=== PATIENT | female | born 1955 | race Caucasian/White ===

== ENCOUNTER 2017-08-30 12:07 | Observation (INO) | payer BC ==
--- NOTE | 2017-08-30 12:34 | ED ---
Chest Pain HPI - General Chief Complaint: Chest Pain Stated Complaint: Chest Pain Time Seen by Provider: 08/30/17 12:26 Source: patient, RN notes reviewed Mode of arrival: wheelchair - History of Present Illness Initial Comments: This is a 7-year-old female history of heart disease with 2 bypasses and a stent about 10 years ago states she was visiting a local assisted she started developing retrosternal nonradiating chest pain. She states it did not radiate to her jaw or to her arm was midsternal fairly severe about 8/10 lasting about 30 minutes. She is pain-free right now she had no nausea vomiting sweats or other symptoms at the time. She is on normally get chest pain. No recent cough phlegm production no trauma. MD Complaint: chest pain - Related Data Home Medications Medication Instructions Recorded Confirmed No Known Home Medications [No 08/30/17 08/30/17 Known Home Medications] Allergies Allergy/AdvReac Type Severity Reaction Status Date / Time No Known Allergies Allergy Verified 08/30/17 12:27 Review of Systems ROS Statement: Those systems with pertinent positive or pertinent negative responses have been documented in the HPI. ROS Other: All systems not noted in ROS Statement are negative. EKG Findings - EKG Results: EKG: interpreted by ERMD, sinus rhythm (Sinus rhythm rate is 60. Interval 156 QRS duration 76 QT since QTC of 454/454 right word axis nonspecific ST configuration) Past Medical History Past Medical History: Coronary Artery Disease (CAD), CVA/TIA, Hyperlipidemia, Myocardial Infarction ([place]) Additional Past Medical History / Comment(s): 10-7-15 c/o neuro symptoms. History of Any Multi-Drug Resistant Organisms: None Reported Past Surgical History: Adenoidectomy, Coronary Bypass/CABG, Heart Catheterization With Stent, Tonsillectomy Additional Past Surgical History / Comment(s): had 2 cabg- first one pt stated had triple done and 2nd one also triple but they had to repair one previous vessel, cyst removed from rt breast Past Anesthesia/Blood Transfusion Reactions: No Reported Reaction Date of Last Stent Placement:: unk Past Psychological History: No Psychological Hx Reported Smoking Status: Current every day smoker - Past Family History Mother Family Medical History: Cancer, Coronary Artery Disease (CAD), Renal Disease Additional Family Medical History / Comment(s): uterine ca and cabg Father Family Medical History: Cancer, Congestive Heart Failure (CHF), Prostate Disorder Additional Family Medical History / Comment(s): prostate cancer General Exam - General Exam Comments Initial Comments: This is a well-developed well-nourished awake alert oriented 3 female General appearance: alert, in no apparent distress Head exam: Present: atraumatic, normocephalic, normal inspection Eye exam: Present: normal appearance, PERRL, EOMI. Absent: scleral icterus, conjunctival injection, periorbital swelling ENT exam: Present: normal exam, mucous membranes moist Neck exam: Present: normal inspection. Absent: tenderness, meningismus, lymphadenopathy Respiratory exam: Present: normal lung sounds bilaterally. Absent: respiratory distress, wheezes, rales, rhonchi, stridor Cardiovascular Exam: Present: regular rate, normal rhythm, normal heart sounds. Absent: systolic murmur, diastolic murmur, rubs, gallop, clicks GI/Abdominal exam: Present: soft, normal bowel sounds. Absent: distended, tenderness, guarding, rebound, rigid Extremities exam: Present: normal inspection, full ROM, normal capillary refill. Absent: tenderness, pedal edema, joint swelling, calf tenderness Back exam: Present: normal inspection Neurological exam: Present: alert, oriented X3, CN II-XII intact Psychiatric exam: Present: normal affect, normal mood Skin exam: Present: warm, dry, intact, normal color. Absent: rash Course Vital Signs 08/30/17 08/30/17 08/30/17 12:11 12:36 14:00 Temperature 98.2 F Pulse Rate 69 64 62 Respiratory 18 18 18 Rate Blood Pressure 200/91 175/80 158/76 O2 Sat by Pulse 99 99 99 Oximetry 08/30/17 14:51 Temperature 97.9 F Pulse Rate 60 Respiratory 18 Rate Blood Pressure 151/80 O2 Sat by Pulse 100 Oximetry Chest Pain MDM - MDM Imaging shows no acute findings. Discussion with patient and reveals no further chest pain at this time the concern is the patient's had no chest pain for quite a while recurrence today is suspicious for recurrent angina patient will be admitted did discuss case with Dr. De La Garza. Critical Care Time Critical Care Time: Yes Critical Care Time: 31 minutes of critical care time which includes initial presentation with history physical labs x-rays reevaluation of the patient and discussed with patient family member regarding the findings. Discussed with the admitting physician admission orders and documentation of the above. Disposition Clinical Impression: Unstable angina pectoris, Chest pain Disposition: ADMITTED IP TO THIS HOSP Condition: Stable Referrals: None,Stated [Primary Care Provider] - 1-2 days
[2017-08-30 12:51] LABS: Basophils % (A) 0 %; Eosinophils # (A) 0.1 k/uL (0-0.7); Eosinophils % (A) 1 %; HCT 42.4 % (34.0-46.0); HGB 14.5 gm/dL (11.4-16.0); Lymphocytes # (A) 1.8 k/uL (1.0-4.8); Lymphocytes % (A) 24 %; MCH 32.2 pg (25.0-35.0); MCHC 34.2 g/dL (31.0-37.0); MCV 93.9 fL (80.0-100.0); Mean Platelet Volume 7.1; Monocytes # (A) 0.3 k/uL (0-1.0); Monocytes % (A) 4 %; Neutrophils # (A) 5.3 k/uL (1.3-7.7); Neutrophils % (A) 69 %; Platelet Count 323 k/uL (150-450); RBC 4.51 m/uL (3.80-5.40); RDW 12.9 % (11.5-15.5); WBC 7.7 k/uL (3.8-10.6)
[2017-08-30 12:56] LABS: ALT 30 U/L (9-52); AST 21 U/L (14-36); Albumin 4.3 g/dL (3.5-5.0); Alkaline Phosphatase 50 U/L (38-126); Amylase 55 U/L (30-110); Anion Gap 9 mmol/L; Blood Urea Nitrogen 14 mg/dL (7-17); Calcium 9.8 mg/dL (8.4-10.2); Carbon Dioxide 27 mmol/L (22-30); Chloride 106 mmol/L (98-107); Glucose 99 mg/dL (74-99); Lipase 93 U/L (23-300); Magnesium 1.8 mg/dL (1.6-2.3); Sodium 142 mmol/L (137-145); Total Bilirubin 0.4 mg/dL (0.2-1.3); Total Protein 7.1 g/dL (6.3-8.2)
--- NOTE | 2017-08-30 12:56 | XR ---
EXAMINATION TYPE: XR chest 2V DATE OF EXAM: 08/30/2017 COMPARISON: Prior chest x-ray April 04, 2015. HISTORY: Chest pain today. TECHNIQUE: Frontal and lateral views of the chest are obtained. FINDINGS: Sternal wires and mediastinal clips are redemonstrated. There is chronic parenchymal change without suspicious focal air space opacity, pleural effusion, or pneumothorax seen. The cardiac carole houette size is within normal limits. The osseous structures are intact. IMPRESSION: Chronic changes without acute pulmonary process.
[2017-08-30 12:59] LABS: Prothrombin Time 10.1 sec (9.0-12.0)
[2017-08-30 13:07] LABS: Creatine Kinase 35 U/L (30-135)
[2017-08-30 13:19] LABS: Creatine Kinase MB 0.5 ng/mL (0.0-2.4); Troponin I <0.012 ng/mL (0.000-0.034)
[2017-08-30] MEDS ORDERED: NITROGLYCERIN SL TABS 0.4 MG TAB SUBLINGUAL PRN (15:57)
[2017-08-30] MEDS ORDERED: HEPARIN SODIUM,PORCINE 5,000 UNIT/ML 1 ML VIAL IV ONE (15:57)
[2017-08-30] MEDS ORDERED: SODIUM CHLORIDE 0.9% 1,000 ML IV SCH (16:00)
[2017-08-30] MEDS ORDERED: HEPARIN SOD,PORK IN 0.45% NACL 25,000 UNIT in 0.45% NACL 1 500ML.BAG IV SCH (16:00)
[2017-08-30 19:43] LABS: Creatine Kinase 30 U/L (30-135)
[2017-08-30 19:56] LABS: Creatine Kinase MB 0.4 ng/mL (0.0-2.4); Troponin I <0.012 ng/mL (0.000-0.034)
[2017-08-30] MEDS: NICOTINE 14MG/24HR PATCH TRANSDERM SCH (20:21)
[2017-08-31 00:42] LABS: Creatine Kinase 30 U/L (30-135)
[2017-08-31 00:56] LABS: Creatine Kinase MB 0.5 ng/mL (0.0-2.4); Troponin I <0.012 ng/mL (0.000-0.034)
[2017-08-31] MEDS ORDERED: ALPRAZolam 0.25 MG TAB PO PRN (01:39)
--- NOTE | 2017-08-31 02:50 | HP ---
HISTORY AND PHYSICAL DATE OF SERVICE: 08/30/17 CHIEF COMPLAINTS: Chest pain. HISTORY OF PRESENT ILLNESS: This 61-year-old woman with a past history of CAD, CABG, stent, history of CVA/TIA, hypertension, hyperlipidemia; myocardial infarction complaining of chest pain. The patient lives in local longterm. The pain is felt in the anterior part of the chest with not radiating to the arm or the jaw. Just in the mid sternum. Intensity is about 8 to 10 and lasted for about 30 minutes. Patient came to [facility] and was admitted for further evaluation and treatment. Initial troponins negative. There is no history of fever, rigors or chills. No history of headache, loss of consciousness or seizures. Past medical history of CAD, CABG, stent, history of CVA/TIA, history of hypertension and myocardial infarction. MEDICATIONS ARE: Home medications are none. ALLERGIES: None. FAMILY HISTORY: Cancer, coronary disease, uterine cancer. SOCIAL HISTORY: History of smoking, no history of alcohol. REVIEW OF SYSTEMS: ENT: No diminished hearing or vision. CARDIOVASCULAR: No angina or palpitations. Respiration: No cough. GI no nausea or vomiting. no dysuria. Nervous System: No numbness or weakness. Allergy/Immunology: No asthma or hayfever. Musculoskeletal as mentioned earlier. Hematology/Oncology: No history of anemia. ENDOCRINE: No history of diabetes or hypothyroidism. CONSTITUTIONAL: As mentioned. Dermatology: Negative. Rheumatology: Negative. Psychiatric: As mentioned earlier. PHYSICAL EXAMINATION: Alert and oriented x3. The pulse is 70. Blood pressure 139/74, respiration 16, temperature 98.4, pulse ox 94% on room air. HEENT conjunctivae normal. Oral mucosa moist. Neck is no jugular venous distention. No carotid bruit. No lymph node enlargement. Cardiovascular system: S1, S2. No S3, no S4. Respiratory: Breath sounds diminished in the bases. No rhonchi. No crackles. ABDOMEN: Soft, nontender. No mass palpable. Legs are no edema. No swelling. Central nervous system: Higher functions as mentioned earlier. Moves all four extremities. Lymphatics: No lymph nodes palpable in the neck, axillae or groin. Skin no ulcer, rashes or bleeding. LABS: At this time, CBC within normal limits. CMP within normal limits. ASSESSMENT: 1. Chest pain, possible unstable angina. 2. History of coronary artery disease, coronary artery bypass grafting, stent. 3. History of cerebrovascular accident, transient ischemic attack. 4. Hyperlipidemia. 5. History of myocardial infarction. 6. History of tonsillectomy. 7. History of nicotine dependence. RECOMMENDATIONS AND DISCUSSION: This 61-year-old woman who presented with multiple complex medical issues, we will monitor the patient closely. Continue the current medications, continue symptomatic treatment. Unstable angina protocol. Cardiology consultation. Beta blockers and antiplatelet agents. Guarded prognosis. Further recommendations to follow. Smoking cessation has been advised. Further recommendations to follow. MMODL / IJN: [id number] /
[2017-08-31 07:21] LABS: Cholesterol 231 mg/dL (<200); HDL Cholesterol 39 mg/dL (40-60); LDL Cholesterol,Calculated 178 mg/dL (0-99); Triglycerides 68 mg/dL (<150)
[2017-08-31] MEDS ORDERED: ASPIRIN 325 MG TAB PO SCH (09:00)
[2017-08-31] MEDS ORDERED: ASPIRIN 81 MG PO SCH (09:00)
[2017-08-31] MEDS ORDERED: METOPROLOL TARTRATE 25 MG TAB PO SCH (09:00)
[2017-08-31] MEDS ORDERED: ATORVASTATIN 40 MG TAB PO SCH (09:00)
[2017-08-31] MEDS ORDERED: AMINOPHYLLINE 500 MG/20 ML VIAL IV PRN (09:41)
[2017-08-31] MEDS ORDERED: REGADENOSON 0.4 MG/5 ML SYRINGE IV ONE (09:41)
--- NOTE | 2017-08-31 11:41 | ECHOF ---
Referral Reason:chest pain MEASUREMENTS -------- HEIGHT: 152.4 cm WEIGHT: 71.7 kg BP: RVIDd: 2.4 cm (< 3.3) IVSd: 1.3 cm (0.6 - 1.1) LVIDd: 3.7 cm (3.9 - 5.3) LVPWd: 1.3 cm (0.6 - 1.1) IVSs: 1.7 cm LVIDs: 2.8 cm LVPWs: 1.3 cm LA Diam: 3.3 cm (2.7 - 3.8) LAESV Index (A-L): 23.08 ml/m Ao Diam: 2.8 cm (2.0 - 3.7) AV Cusp: 1.5 cm (1.5 - 2.6) LA Diam: 3.9 cm (2.7 - 3.8) EPSS: 0.2 cm MV E Brien: 0.73 m/s MV DecT: 271 ms MV A Brien: 0.78 m/s MV E/A Ratio: 0.94 AR PHT: 488 ms RAP: 5.00 mmHg RVSP: 32.81 mmHg MV EF SLOPE: 33.04 mm/s (70 - 150) MV EXCURSION: 1.73 cm (> 18.000) FINDINGS -------- Sinus rhythm. This was a technically good study. The left ventricular size is normal. There is mild concentric left ventricular hypertrophy. Overa ll left ventricular systolic function is normal with, an EF between 55 - 60 %. The right ventricle is normal in size. Normal LA size by volume 22+/-6 ml/m2. The right atrial size is normal. There is mild aortic valve sclerosis. Mild mitral annular calcification present. Mild mitral regurgitation is present. Mild tricuspid regurgitation present. There is no evidence of pulmonary hypertension. The right v entricular systolic pressure, as measured by Doppler, is 32.81mmHg. Trace/mild (physiologic) pulmonic regurgitation. The aortic root size is normal. There is no pericardial effusion. CONCLUSIONS -------- 1. Sinus rhythm. 2. This was a technically good study. 3. The left ventricular size is normal. 4. There is mild concentric left ventricular hypertrophy. 5. Overall left ventricular systolic function is normal with, an EF between 55 - 60 %. 6. The right ventricle is normal in size. 7. Normal LA size by volume 22+/-6 ml/m2. 8. The right atrial size is normal. 9. There is mild aortic valve sclerosis. 10. Mild mitral annular calcification present. 11. Mild mitral regurgitation is present. 12. Mild tricuspid regurgitation present. 13. There is no evidence of pulmonary hypertension. 14. The right ventricular systolic pressure, as measured by Doppler, is 32.81mmHg. 15. Trace/mild (physiologic) pulmonic regurgitation. 16. The aortic root size is normal. 17. There is no pericardial effusion. CERTIFIED MEDICAL CODING SPECIALIST: Diann Willis RDCS
--- NOTE | 2017-08-31 11:49 | P.STRESS ---
- Stress Test Note Stress Test Results/Findings: Exam Performed: NM stress lexiscan cardiolite Exam Date: 08/31/17 Reason for Exam: Chest Pain Height: 5 ft 1 in Weight: 71.7 kg Protocol: Alyson Scan Stage: na Duration of Exercise: na Resting Heart Rate: 61 Resting Blood Pressure: 149/82 Maximum Achieved Heart Rate: 102 Maximum Achieved Blood Pressure: 173/72 85% PMHR: na 100% PMHR: na METS: na Technologist Comment: Stress Test Results/Findings: This is a 61-year-old female with history of previous CVA, hypercholesterolemia and family history of ischemic heart disease and also smoking being evaluated for symptoms of chest pain. Baseline EKG showed sinus rhythm with normal SD and from the QRS duration with nonspecific ST-T abnormalities. Standard dose of Lexiscan was infused. EKGs taken during and after the infusion did not reveal any changes to suggest ischemia. Final impression: #1. Negative Lexiscan stress test #2. Report on the nuclear images to be given by the radiologist.
[2017-08-31] MEDS: NICOTINE 14MG/24HR PATCH TRANSDERM SCH (12:04)
--- NOTE | 2017-08-31 12:11 | NM ---
EXAMINATION TYPE: NM stress lexiscan cardiolite DATE OF EXAM: 08/31/2017 COMPARISON: NONE HISTORY: 61-year-old female with chest pain TECHNIQUE: After the intravenous administration of 9.2 mCi Tc 99m Sestamibi - Cardiolite resting SPE CT images acquired 45 minutes post injection. The patient received 0.4mg Lexiscan, 24.9 mCi Tc 99m Sestamibi - Stress images obtained [address] injection FINDINGS: Review of stress and rest SPECT images demonstrates no distinct perfusion abnormality. Gated analysi s shows normal wall motion with an estimated left ventricular ejection fraction of 58 %. TID is calc ulated at 0.96, within normal limits. IMPRESSION: No scintigraphic evidence for reversible ischemia.
[2017-08-31] MEDS ORDERED: LISINOPRIL 5 MG TAB PO SCH (12:45)
--- NOTE | 2017-08-31 12:46 | P.CRDCN ---
History of Present Illness Consult date: 08/31/17 Consult reason: chest pain History of present illness: Mrs. Dee is a pleasant 61-year-old female past medical history significant for coronary artery disease status post bypass grafting 2. She also has dyslipidemia and suffered a TIA in 2014. She states her first CABG was performed in 2001 which was triple-vessel at that time and she had a repeated in 2006. She states the harvested veins from the legs both times. She does not follow with anyone from cardiology since approximately 2008. She takes no cardiac medications. We've been asked to see her in consultation for a one-time episode of chest pain yesterday. She states she had tightness across the entire anterior chest wall lasting approximately 10-15 minutes she was at [employer] visiting. She had no associated shortness of breath, dizziness , palpitations, diaphoresis, nausea or vomiting. The pain remained localized to the anterior chest wall did not radiate to the arms neck back or jaw. Since the pain has subsided she's had no recurrence of the pain. EKG on arrival reveals sinus mechanism with nonspecific changes. Chest x-ray negative for an acute cardiopulmonary process. Laboratory data reviewed, cardiac enzymes negative 3, hemoglobin 14.5, platelets 323, potassium 4.0, magnesium 1.8, creatinine 0.61, LDL 178. She takes no medications on a daily basis. Most recent echocardiogram performed 2014 reveals preserved left ventricular systolic function with ejection fraction 50-55%, mild concentric left ventricular hypertrophy, mild aortic valve sclerosis without stenosis, mild MR and mild TR. Review of Systems At the time my exam: CONSTITUTIONAL: Denies fever. Denies chills. EYES: Denies blurred vision. Denies vision changes. Denies eye pain. EARS, NOSE, MOUTH & THROAT: Denies headache. Denies sore throat. Denies ear pain. CARDIOVASCULAR: Denies chest pain. Denies shortness of breath. Denies orthopnea. Denies PND. Denies palpitations. RESPIRATORY: Denies cough. GASTROINTESTINAL: Denies abdominal pain. Denies diarrhea. Denies constipation. Denies nausea. Denies vomiting. MUSCULOSKELETAL: Denies myalgias. INTEGUMENTARY: Denies pruitis. Denies rash. NEUROLOGIC: Denies numbness. Denies tingling. Denies weakness. PSYCHIATRIC: Denies anxiety. Denies depression. ENDOCRINE: Denies fatigue. Denies weight change. Denies polydipsia. Denies polyurina. GENITOURINARY: Denies burning, hematuria or urgency with micturation. HEMATOLOGIC: Denies history of anemia. Denies bleeding. Past Medical History Past Medical History: Coronary Artery Disease (CAD), Chest Pain / Angina, CVA/ TIA, Hyperlipidemia, Myocardial Infarction ([place]) Additional Past Medical History / Comment(s): 04-03-15 c/o neuro symptoms. Last Myocardial Infarction Date:: 2006 History of Any Multi-Drug Resistant Organisms: None Reported Past Surgical History: Adenoidectomy, Coronary Bypass/CABG, Heart Catheterization With Stent, Tonsillectomy Additional Past Surgical History / Comment(s): had 2 cabg- first one pt stated had triple done and 2nd one also triple but they had to repair one previous vessel, cyst removed from rt breast Past Anesthesia/Blood Transfusion Reactions: No Reported Reaction Date of Last Stent Placement:: before 2001 Past Psychological History: No Psychological Hx Reported Additional Psychological History / Comment(s): pt lives at home with her ,is independant,no outside services. Smoking Status: Current every day smoker Past Alcohol Use History: None Reported Additional Past Alcohol Use History / Comment(s): started smking at age 17, smokes 1/2-1 ppd, smoking booklet offered to pt Past Drug Use History: None Reported - Past Family History Mother Family Medical History: Cancer, Coronary Artery Disease (CAD), Renal Disease Additional Family Medical History / Comment(s): uterine ca and cabg Father Family Medical History: Cancer, Congestive Heart Failure (CHF), Prostate Disorder Additional Family Medical History / Comment(s): prostate cancer Medications and Allergies Home Medications Medication Instructions Recorded Confirmed Type Aspirin 81 mg PO DAILY #30 chew 08/31/17 Rx Atorvastatin [Lipitor] 40 mg PO DAILY #30 tab 08/31/17 Rx Metoprolol Tartrate [Lopressor] 25 mg PO BID #60 tab 08/31/17 Rx Nicotine 14Mg/24Hr Patch [Habitrol] 1 patch TRANSDERM DAILY #30 patch 08/31/17 Rx Allergies Allergy/AdvReac Type Severity Reaction Status Date / Time No Known Allergies Allergy Verified 08/30/17 12:27 Physical Exam Vitals: Vital Signs Temp Pulse Pulse Resp BP BP Pulse Ox 08/31/17 07:38 97.7 F 60 18 164/73 98 08/31/17 03:48 97.4 F L 55 L 16 135/65 98 08/31/17 03:19 54 L 16 08/30/17 23:38 98.2 F 87 16 174/85 96 08/30/17 23:13 70 16 08/30/17 20:00 65 16 08/30/17 19:38 98.5 F 71 16 139/74 95 08/30/17 16:59 98.2 F 69 18 148/77 98 08/30/17 16:42 97.9 F 58 L 16 155/74 98 08/30/17 14:51 97.9 F 60 18 151/80 100 08/30/17 14:00 62 18 158/76 99 08/30/17 12:36 64 18 175/80 99 08/30/17 12:11 98.2 F 69 18 200/91 99 Intake and Output 08/30/17 08/31/17 08/31/17 22:59 06:59 14:59 Intake Total 240 142.182 Balance 240 142.182 Intake: Intake, IV Titration 142.182 Amount Heparin Sod,Pork in 0.45% 142.182 NaCl 25,000 unit In 0.45 % NaCl 1 500ml.bag @ 12 UNITS/KG/HR 17.41 mls/hr IV .Q24H COUNT INCLUDES THE [facility] Rx#: [id number] Oral 240 Other: # Voids 2 Weight 71.7 kg Blood pressure 160/73 heart rate 60 afebrile maintaining oxygen saturations on room air GENERAL: This is a 61-year-old female in no apparent distress at the time of my examination. HEENT: Head is atraumatic, normocephalic. Pupils are equal, round. Sclerae anicteric. Conjunctivae are clear. Mucous membranes of the mouth are moist. Neck is supple. There is no jugular venous distention. No carotid bruit is heard. LUNGS: Clear to auscultation no wheezes, rales or rhonchi. No chest wall tenderness is noted on palpation or with deep breathing. HEART: Regular rate and rhythm with systolic ejection murmur at the base, no rubs or gallops. S1 and S2 heard. ABDOMEN: Soft, nontender. Bowel sounds are heard. No organomegaly noted. EXTREMITIES: No evidence of peripheral edema and no calf tenderness noted. VASCULAR: Radial and dorsalis pedis pulses palpated, no evidence of clubbing. NEUROLOGIC: Patient is awake, alert and oriented x3. Results 08/30/17 12:33 08/30/17 12:33 Cardiac Enzymes 08/30/17 08/30/17 08/30/17 Range/Units 12:33 12:33 19:01 AST 21 (14-36) U/L CK-MB (CK-2) 0.5 0.4 (0.0-2.4) ng/mL Troponin I <0.012 <0.012 (0.000-0.034) ng/mL 08/30/17 Range/Units 23:57 AST (14-36) U/L CK-MB (CK-2) 0.5 (0.0-2.4) ng/mL Troponin I <0.012 (0.000-0.034) ng/mL Coagulation 08/30/17 08/30/17 08/31/17 Range/Units 12:33 23:54 06:21 PT 10.1 (9.0-12.0) sec APTT 25.0 41.0 H 55.4 H (22.0-30.0) sec Lipids 08/31/17 Range/Units 06:21 Triglycerides 68 (<150) mg/dL Cholesterol 231 H (<200) mg/dL HDL Cholesterol 39 L (40-60) mg/dL CBC 08/30/17 Range/Units 12:33 WBC 7.7 (3.8-10.6) k/uL RBC 4.51 (3.80-5.40) m/uL Hgb 14.5 (11.4-16.0) gm/dL Hct 42.4 (34.0-46.0) % Plt Count 323 (150-450) k/uL Comprehensive Metabolic Panel 08/30/17 Range/Units 12:33 Sodium 142 (137-145) mmol/L Potassium 4.0 (3.5-5.1) mmol/L Chloride 106 (98-107) mmol/L Carbon Dioxide 27 (22-30) mmol/L BUN 14 (7-17) mg/dL Creatinine 0.61 (0.52-1.04) mg/dL Glucose 99 (74-99) mg/dL Calcium 9.8 (8.4-10.2) mg/dL AST 21 (14-36) U/L ALT 30 (9-52) U/L Alkaline Phosphatase 50 (38-126) U/L Total Protein 7.1 (6.3-8.2) g/dL Albumin 4.3 (3.5-5.0) g/dL Current Medications Generic Name Dose Route Start Last Admin Trade Name Freq PRN Reason Stop Dose Admin Alprazolam 0.25 mg 08/31/17 01:39 Xanax PO TID PRN Anxiety Aspirin 81 mg 08/31/17 09:00 Aspirin PO DAILY ANGY Atorvastatin Calcium 40 mg 08/31/17 09:00 Lipitor PO DAILY ANGY Heparin Sodium/Sodium Chloride 500 mls @ 17.41 mls/hr 08/30/17 16:00 00:49 25,000 unit/ Sodium Chloride IV 13.91 units/kg/hr .Q24H ANGY 20.2 mls/hr Protocol Titration 12 UNITS/KG/HR Sodium Chloride 1,000 mls @ 20 mls/hr 08/30/17 16:00 08/30/17 16:38 Saline 0.9% IV 20 mls/hr .Q24H ANGY Administration Metoprolol Tartrate 25 mg 08/31/17 09:00 Lopressor PO BID ANGY Nicotine 1 patch 08/30/17 18:00 08/30/17 20:21 Habitrol 14mg/24hr Patch TRANSDERM 1 patch DAILY ANGY Administration Nitroglycerin 0.4 mg 08/30/17 15:57 Nitrostat SUBLINGUAL Q5M PRN Chest Pain Intake and Output 08/30/17 08/31/17 08/31/17 22:59 06:59 14:59 Intake Total 240 142.182 Balance 240 142.182 Intake: Intake, IV Titration 142.182 Amount Heparin Sod,Pork in 0.45% 142.182 NaCl 25,000 unit In 0.45 % NaCl 1 500ml.bag @ 12 UNITS/KG/HR 17.41 mls/hr IV .Q24H ANGY Rx#: [id number] Oral 240 Other: # Voids 2 Weight 71.7 kg 08/30/17 12:33 08/30/17 12:33 Assessment and Plan Assessment: ASSESSMENT 1. Chest pain, atypical. Acute coronary event has been ruled out with no EKG evidence of ischemia and negative cardiac enzymes. 2. History of coronary artery disease status post bypass grafting 2 3. Dyslipidemia 4. Noncompliance 5. Chronic tobacco abuse 6. Hypertension PLAN Obtain 2-D echocardiogram and Doppler study to assess cardiac structure and function. Perform Lexiscan stress test to assess for reversible cardiac ischemia. Patient started on aspirin 81 mg daily, atorvastatin 40 mg daily, lisinopril 5 mg daily and metoprolol 25 mg twice a day. These medications should be continued. Importance of this regimen has been discussed with the patient and she is agreeable. Smoking cessation has been discussed. Follow-up with Dr. Lincoln in 2-3 weeks. Nurse Practitioner note has been reviewed, I agree with a documented findings and plan of care. Patient was seen and examined.
[2017-08-31 15:27] VITALS: PULSE 53; RESP 17; TEMP 98.1
[2017-08-31 16:08] VITALS: BP 152/83
--- NOTE | 2017-08-31 23:24 | DS ---
DISCHARGE SUMMARY FINAL DIAGNOSES: 1. Chest pain. Myocardial infarction ruled out. Negative stress test. Possible unstable angina. 2. History of coronary artery disease, coronary artery bypass grafting, stent. 3. History of cerebrovascular accident, transient ischemic attack. 4. Hyperlipidemia. 5. History of noncompliance. 6. History of myocardial infarction. 7. History of tonsillectomy. 8. History of nicotine dependence. DISCHARGE DISPOSITION: The patient will be discharged in stable condition with guarded prognosis. HISTORY OF PRESENT ILLNESS: This 61-year-old woman with a past medical history of multiple medical problems, as mentioned earlier, being followed by Dr. Johnson in the outpatient setting, was admitted with chest pain. Myocardial infarction was ruled out. Cardiology performed a stress test which was negative. The patient will be discharged in stable condition with guarded prognosis. Patient has stopped all the medications primarily because of the pain from high-dose Lipitor, according to the patient. So Lipitor 10 mg was recommended and slowly increase the dose if the patient is tolerating it. Otherwise, on exam vitals are stable. CARDIOVASCULAR SYSTEM: S1, S2 muffled. ABDOMEN: Soft. NERVOUS SYSTEM: No focal deficit. DISCHARGE ADVICE AND MEDICATIONS: 1. Diet is cardiac. 2. Activity limited until followup. 3. Follow up with Dr. Johnson in 2 to 3 days. 4. Follow up with Dr. Lincoln as recommended. 5. Aspirin 81 mg p.o. daily. 6. Lipitor 40 mg p.o. daily. 7. Zestril 5 mg p.o. daily. 8. Lopressor 25 mg p.o. b.i.d. 9. Habitrol 1 patch daily. Once again, the patient will be discharged in stable condition with guarded prognosis. MMODL / IJN: [id number] /
--- NOTE | 2017-09-01 10:12 | EST ---
- Stress Test Note Stress Test Results/Findings: Exam Performed: NM stress lexiscan cardiolite Exam Date: 08/31/17 Reason for Exam: Chest Pain Height: 5 ft 1 in Weight: 71.7 kg Protocol: Alyson Scan Stage: na Duration of Exercise: na Resting Heart Rate: 61 Resting Blood Pressure: 149/82 Maximum Achieved Heart Rate: 102 Maximum Achieved Blood Pressure: 173/72 85% PMHR: na 100% PMHR: na METS: na Technologist Comment: Stress Test Results/Findings: This is a 61-year-old female with history of previous CVA, hypercholesterolemia and family history of ischemic heart disease and also smoking being evaluated for symptoms of chest pain. Baseline EKG showed sinus rhythm with normal VT and from the QRS duration with nonspecific ST-T abnormalities. Standard dose of Lexiscan was infused. EKGs taken during and after the infusion did not reveal any changes to suggest ischemia. Final impression: #1. Negative Lexiscan stress test #2. Report on the nuclear images to be given by the radiologist. DANAE
== END 2017-08-31 16:32 | disposition home or self-care (01) ==
LOC: EC 12:07 → 3OBS 15:57
PROVIDERS: ADMIT Internal Medicine; ATTEND Internal Medicine
DX: R07.89 Other chest pain (principal); I25.10 Atherosclerotic heart disease of native coronary artery without angina pectoris; Z95.1 Presence of aortocoronary bypass graft; Z95.5 Presence of coronary angioplasty implant and graft; E78.5 Hyperlipidemia, unspecified; E78.00 Pure hypercholesterolemia, unspecified; I11.0 Hypertensive heart disease with heart failure; I25.2 Old myocardial infarction; Z86.73 Personal history of transient ischemic attack (TIA), and cerebral infarction without residual deficits; F17.200 Nicotine dependence, unspecified, uncomplicated; Z91.19 Patient's noncompliance with other medical treatment and regimen; Z80.49 Family history of malignant neoplasm of other genital organs; Z80.42 Family history of malignant neoplasm of prostate; Z79.82 Long term (current) use of aspirin; Z79.899 Other long term (current) drug therapy
CPT/HCPCS: 99291; 96376 ×2; 96365 ×2; 96366 ×2; 36415; 93005; 93017; 93306; 83880; 80061; 80053; 82150; 82550; 82553; 83690; 83735; 84484; 85025; 85610; 85730 ×2; 71046; 78452; G0378 ×2; A9500; S4990 ×2; J1644 ×2; J2785

== ENCOUNTER 2020-11-15 10:24 | Emergency (ER) | payer BC ==
[2020-11-15 10:28] VITALS: PULSE 60; RESP 18; TEMP 97.9
--- NOTE | 2020-11-15 12:09 | US ---
EXAMINATION TYPE: US venous doppler duplex LE RT DATE OF EXAM: 11/15/2020 12:02 PM COMPARISON: NONE CLINICAL HISTORY: calf pain. Right leg pain SIDE PERFORMED: Right TECHNIQUE: The lower extremity deep venous system is examined utilizing real time linear array sonog naomi with graded compression, doppler sonography and color-flow sonography. VESSELS IMAGED: Common Femoral Vein Deep Femoral Vein Greater Saphenous Vein * Femoral Vein Popliteal Vein Small Saphenous Vein * Proximal Calf Veins (* superficial vessels) Right Leg: Appears negative for DVT Left Leg: Appears negative for DVT IMPRESSION: No evidence of DVT at this time.
[2020-11-15 12:25] LABS: Basophils # (A) 0.1 k/uL (0-0.2); Basophils % (A) 1 %; Eosinophils # (A) 0.2 k/uL (0-0.7); Eosinophils % (A) 3 %; HCT 41.1 % (34.0-46.0); HGB 14.1 gm/dL (11.4-16.0); Lymphocytes # (A) 1.5 k/uL (1.0-4.8); Lymphocytes % (A) 19 %; MCH 32.2 pg (25.0-35.0); MCHC 34.3 g/dL (31.0-37.0); MCV 93.9 fL (80.0-100.0); Mean Platelet Volume 6.7; Monocytes # (A) 0.5 k/uL (0-1.0); Monocytes % (A) 6 %; Neutrophils # (A) 5.5 k/uL (1.3-7.7); Neutrophils % (A) 69 %; Platelet Count 272 k/uL (150-450); RBC 4.38 m/uL (3.80-5.40); RDW 12.5 % (11.5-15.5); WBC 7.9 k/uL (3.8-10.6)
[2020-11-15] MEDS ORDERED: MORPHINE SULFATE 4 MG/ML SYRINGE IVP STA (12:34)
[2020-11-15 12:35] LABS: ALT 24 U/L (4-34); AST 24 U/L (14-36); African American GFR (CKD) >90 (>60 ml/min/1.73 sqM); Albumin 4.5 g/dL (3.5-5.0); Alkaline Phosphatase 49 U/L (38-126); Anion Gap 9 mmol/L; Blood Urea Nitrogen 16 mg/dL (7-17); Carbon Dioxide 25 mmol/L (22-30); Chloride 108 mmol/L (98-107); Glucose 104 mg/dL (74-99); Magnesium 1.9 mg/dL (1.6-2.3); Non-African American GFR(CKD) >90 (>60 ml/min/1.73 sqM); Potassium 4.3 mmol/L (3.5-5.1); Sodium 142 mmol/L (137-145); Total Bilirubin 0.4 mg/dL (0.2-1.3); Total Protein 7.2 g/dL (6.3-8.2)
[2020-11-15 12:38] LABS: INR 0.9 (<1.2); Prothrombin Time 9.8 sec (9.0-12.0)
--- NOTE | 2020-11-15 12:47 | ED ---
Extremity Problem HPI - General Chief complaint: Extremity Problem,Nontraumatic Stated complaint: R Leg Pain Time Seen by Provider: 11/15/20 10:45 Source: patient Mode of arrival: ambulatory Limitations: no limitations - History of Present Illness Initial comments: 65yo female presenting for cc of right leg pain. pt states that she has had right leg pain chronically and was told it was due to her having veins harvested from her legs for open heart. pt states she hasnt had good sensation in foot for "quite some time" and for the past week from her knee to ankle has had increased pain. pt states it increased wtih walking. pt has a scheduled vascular appointment on 12/03/20. pt dneies additional complaints. denies chesst pain, dyspnea or hx of DVT. - Related Data Previous Rx's Medication Instructions Recorded Aspirin 81 mg PO DAILY #30 chew 08/31/17 Atorvastatin [Lipitor] 40 mg PO DAILY #30 tab 08/31/17 Metoprolol Tartrate [Lopressor] 25 mg PO BID #60 tab 08/31/17 Nicotine 14Mg/24Hr Patch [Habitrol] 1 patch TRANSDERM DAILY #30 patch 08/31/17 lisinopriL [Zestril] 5 mg PO DAILY #30 tab 08/31/17 Gabapentin [Neurontin] 300 mg PO BID PRN 3 Days #6 cap 11/15/20 Allergies Allergy/AdvReac Type Severity Reaction Status Date / Time No Known Allergies Allergy Verified 11/15/20 10:28 Review of Systems ROS Statement: Those systems with pertinent positive or pertinent negative responses have been documented in the HPI. ROS Other: All systems not noted in ROS Statement are negative. Past Medical History Past Medical History: Coronary Artery Disease (CAD), Chest Pain / Angina, CVA/TIA, Hyperlipidemia, Myocardial Infarction ([place]) Additional Past Medical History / Comment(s): 04-03-15 c/o neuro symptoms. Last Myocardial Infarction Date:: 2006 History of Any Multi-Drug Resistant Organisms: None Reported Past Surgical History: Adenoidectomy, Coronary Bypass/CABG, Heart Catheterization With Stent, Tonsillectomy Additional Past Surgical History / Comment(s): had 2 cabg- first one pt stated had triple done and 2nd one also triple but they had to repair one previous vessel, cyst removed from rt breast Past Anesthesia/Blood Transfusion Reactions: No Reported Reaction Date of Last Stent Placement:: before 2001 Past Psychological History: No Psychological Hx Reported Smoking Status: Former smoker Past Alcohol Use History: None Reported Past Drug Use History: None Reported - Past Family History Mother Family Medical History: Cancer, Coronary Artery Disease (CAD), Renal Disease Additional Family Medical History / Comment(s): uterine ca and cabg Father Family Medical History: Cancer, Congestive Heart Failure (CHF), Prostate Disorder Additional Family Medical History / Comment(s): prostate cancer General Exam - General Exam Comments Initial Comments: General: The patient is awake and alert, in no distress Eye: +3 mm pupils are equal, round and reactive to light, extra-ocular movements are intact. No nystagmus. There is normal conjunctiva bilaterally. No signs of icterus. Ears, nose, mouth and throat: There are moist mucous membranes and no oral lesions. Neck: The neck is supple, there is no tenderness or JVD. Cardiovascular: There is a regular rate and rhythm. No murmur, rub or gallop is appreciated. Respiratory: Lungs are clear to auscultation, respirations are non-labored, breath sounds are equal. No wheezes, stridor, rales, or rhonchi. Gastrointestinal: Soft, non-distended, non-tender abdomen without masses or organomegaly noted. There is no rebound or guarding present. Musculoskeletal: Normal ROM, no tenderness. Strength 5/5. Sensation intact. Ra dial and DP pulses equal bilaterally 2+. Neurological: A&O x 3. CN II-XII intact grossly, There are no obvious motor or sensory deficits. Coordination appears grossly intact. Speech is normal. Skin: Skin is warm and dry and no rashes. NO LE edema, but pain to palpation of right calf. Psychiatric: Cooperative, appropriate mood & affect, normal judgment. Limitations: no limitations Course Vital Signs 11/15/20 10:25 Temperature 97.9 F Pulse Rate 60 Respiratory 18 Rate Blood Pressure 162/71 O2 Sat by Pulse 99 Oximetry Medical Decision Making - Medical Decision Making labs stable. US (-). pt has equal pulses of the LE b/l. pt has f/u wtih vascular. no clinical findings suggestive at this time of arterial occlusion on physical exam. pt discharged appearing well .Dr Sharif is agreeable to this care plan. - Lab Data Result diagrams: 11/15/20 12:14 11/15/20 12:14 Lab Results 11/15/20 11/15/20 11/15/20 Range/Units 12:14 12:14 12:14 WBC 7.9 (3.8-10.6) k/uL RBC 4.38 (3.80-5.40) m/uL Hgb 14.1 (11.4-16.0) gm/dL Hct 41.1 (34.0-46.0) % MCV 93.9 (80.0-100.0) fL MCH 32.2 (25.0-35.0) pg MCHC 34.3 (31.0-37.0) g/dL RDW 12.5 (11.5-15.5) % Plt Count 272 (150-450) k/uL MPV 6.7 Neutrophils % 69 % Lymphocytes % 19 % Monocytes % 6 % Eosinophils % 3 % Basophils % 1 % Neutrophils # 5.5 (1.3-7.7) k/uL Lymphocytes # 1.5 (1.0-4.8) k/uL Monocytes # 0.5 (0-1.0) k/uL Eosinophils # 0.2 (0-0.7) k/uL Basophils # 0.1 (0-0.2) k/uL PT 9.8 (9.0-12.0) sec INR 0.9 (<1.2) APTT 24.0 (22.0-30.0) sec Sodium 142 (137-145) mmol/L Potassium 4.3 (3.5-5.1) mmol/L Chloride 108 H (98-107) mmol/L Carbon Dioxide 25 (22-30) mmol/L Anion Gap 9 mmol/L BUN 16 (7-17) mg/dL Creatinine 0.65 (0.52-1.04) mg/dL Est GFR (CKD-EPI)AfAm >90 (>60 ml/min/1.73 sqM) Est GFR (CKD-EPI)NonAf >90 (>60 ml/min/1.73 sqM) Glucose 104 H (74-99) mg/dL Calcium 10.0 (8.4-10.2) mg/dL Magnesium 1.9 (1.6-2.3) mg/dL Total Bilirubin 0.4 (0.2-1.3) mg/dL AST 24 (14-36) U/L ALT 24 (4-34) U/L Alkaline Phosphatase 49 (38-126) U/L Total Protein 7.2 (6.3-8.2) g/dL Albumin 4.5 (3.5-5.0) g/dL Disposition Clinical Impression: Right leg pain Disposition: HOME SELF-CARE Condition: Good Instructions (If sedation given, give patient instructions): Leg Pain (ED) Additional Instructions: Please use medication as discussed. Please follow-up with family doctor in the next 2 days. Please return to emergency room if the symptoms increase or worsen or for any other concerns. Prescriptions: Gabapentin [Neurontin] 300 mg PO BID PRN 3 Days #6 cap PRN Reason: Pain Is patient prescribed a controlled substance at d/c from ED?: No Referrals: Marce Guillermo MD [Primary Care Provider] - 1-2 days Norma Baer DO [STAFF PHYSICIAN] - 1-2 days Time of Disposition: 12:46
[2020-11-15 13:18] VITALS: BP 162/69
== END 2020-11-15 13:18 | disposition home or self-care (01) ==
LOC: EC 10:24
DX: M79.604 Pain in right leg (principal); I25.10 Atherosclerotic heart disease of native coronary artery without angina pectoris; E78.5 Hyperlipidemia, unspecified; I25.2 Old myocardial infarction; Z86.73 Personal history of transient ischemic attack (TIA), and cerebral infarction without residual deficits; Z87.891 Personal history of nicotine dependence; Z79.82 Long term (current) use of aspirin; Z95.1 Presence of aortocoronary bypass graft
CPT/HCPCS: 36415; 80053; 83735; 85025; 85610; 85730; 93971; 99284; 96374; J2270

== ENCOUNTER → 2020-12-11 | Outpatient (CLI) | payer BC ==
--- NOTE | 2020-12-11 20:21 | CT ---
EXAMINATION TYPE: CT angio abd aorta w/Runoff DATE OF EXAM: 12/11/2020 HISTORY: H/O posterior legs pain near knees x3 months. Claudication CT DLP: 1306.40mGycm Automated Exposure Control for Dose Reduction was Utilized. CONTRAST: CT scan of the abdomen and pelvis is performed with IV Contrast, patient injected with 125 mL of Isov ue 370. 3-dimensional reconstructions performed on an alternate workstation. COMPARISON: None FINDINGS: The aorta shows atheromatous change. Proximal descending aorta and within the chest measure s 3.5 cm, is ectatic, the entire transverse aorta is not included on exam. Ascending aorta is not ane urysmal, post median sternotomy changes are present. The celiac axis, superior mesenteric artery, renal arteries, common iliac, internal and external lacy c arteries are patent, suspect there may be retrograde filling of the internal iliac artery on the ri ght, proximal occlusion. The proximal common iliac artery on the left shows diminution in caliber as compared to the right. Infrarenal abdominal aorta is aneurysmal with luminal plaque measuring 3.5 cm. Inferior mesenteric artery is thought to fill in a retrograde manner. The proximal superficial femoral artery on the left is occluded as it is on the right. Deep femoral a rtery branches are present bilaterally. The popliteal arteries show reconstitution at the level of Hu nter's canal on the right and on the left. Trifurcation vasculature is present enhancing peripherally within the legs at least 2 vessels on the left, peroneal artery not well seen to enhance in the dist al calf, three-vessel outflow on the right is noted. LUNG BASES: No significant abnormality is appreciated. LIVER/GB: Dependent high attenuation within the gallbladder consistent with stones. Liver shows low a ttenuation possibly due to hepatic steatosis.. PANCREAS: No significant abnormality is seen. SPLEEN: No significant abnormality is seen. ADRENALS: No significant abnormality is seen. KIDNEYS: Cortical cyst associated with the right kidney.. BOWEL: No significant abnormality is seen. UTERUS/ADNEXA: No gross abnormality seen. LYMPH NODES: No greater than 1cm abdominal or pelvic lymph nodes are appreciated. OSSEOUS STRUCTURES: No significant abnormality is seen. OTHER: Small bilateral inguinal hernias containing fat. IMPRESSION: Peripheral vascular occlusive disease as described. Aortic aneurysm change. Additional fi ndings above.
== END | disposition home or self-care (01) ==
LOC: RADCTMAIN 15:58
PROVIDERS: ATTEND Surgery
DX: I73.9 Peripheral vascular disease, unspecified (principal); I71.9 Aortic aneurysm of unspecified site, without rupture
CPT/HCPCS: 75635; Q9967

== ENCOUNTER 2021-08-19 12:51 | Observation (INO) | payer BC ==
[2021-08-19] MEDS ORDERED: ASPIRIN 81 MG PO STA (13:14)
[2021-08-19] MEDS ORDERED: HEPARIN SODIUM 1,000 UN/ML (10ML VL) IV ONE (13:14)
[2021-08-19] MEDS ORDERED: NITROGLYCERIN OINT 1 INCH/GM PACKET TOPICAL STA (13:14)
[2021-08-19] MEDS ORDERED: HEPARIN SOD,PORK IN 0.45% NACL 25,000 UNIT in 0.45% NACL 1 250ML.BAG IV SCH (13:15)
--- NOTE | 2021-08-19 13:16 | ED ---
General Adult HPI - General Chief complaint: Chest Pain Stated complaint: chest pain over weekend, sent by PCP Time Seen by Provider: 08/19/21 13:00 Source: patient, RN notes reviewed, old records reviewed Mode of arrival: ambulatory Limitations: no limitations - History of Present Illness Initial comments: This is a 65-year-old female who presents emergency Department with a past medical history is for 2 bypass surgeries, smoking, high blood pressure, and high cholesterol. Patient states it twice this week and she had chest pain that was relieved by nitroglycerin the second time was much more significant than the first. Patient states she did not have any associated symptoms because she took a nitroglycerin quickly. Patient denied any shortness of breath diaphoretic episode. Patient denied any nausea. Patient denies any abdominal pain. Patient states since Wednesday she has been chest pain-free. Patient states she went to see her primary medical care doctor the primary medical care doctor was suspicious enough that he wanted her to be brought and placed on heparin and have cardiology see her as an inpatient. Patient denies any fever chills or cough. Patient denies any lightheadedness or dizziness. Patient denies any fever chills or cough. - Related Data Home Medications Medication Instructions Recorded Confirmed Atorvastatin [Lipitor] 80 mg PO HS 08/19/21 08/19/21 Clopidogrel [Plavix] 75 mg PO DAILY 08/19/21 08/19/21 Isosorbide Mononitrate ER [Imdur] 30 mg PO DAILY 08/19/21 08/19/21 Lisinopril [Zestril] 10 mg PO DAILY 08/19/21 08/19/21 Metoprolol Tartrate [Lopressor] 12.5 mg PO BID 08/19/21 08/19/21 Previous Rx's Medication Instructions Recorded Aspirin 81 mg PO DAILY #30 chew 08/31/17 Allergies Allergy/AdvReac Type Severity Reaction Status Date / Time No Known Allergies Allergy Verified 08/19/21 14:23 Review of Systems ROS Statement: Those systems with pertinent positive or pertinent negative responses have been documented in the HPI. ROS Other: All systems not noted in ROS Statement are negative. Past Medical History Past Medical History: Coronary Artery Disease (CAD), Chest Pain / Angina, CVA/TIA, Hyperlipidemia, Myocardial Infarction ([place]) Additional Past Medical History / Comment(s): 10-7-15 c/o neuro symptoms. Last Myocardial Infarction Date:: 2006 History of Any Multi-Drug Resistant Organisms: None Reported Past Surgical History: Adenoidectomy, Coronary Bypass/CABG, Heart Catheterization With Stent, Tonsillectomy Additional Past Surgical History / Comment(s): had 2 cabg- first one pt stated had triple done and 2nd one also triple but they had to repair one previous vessel, cyst removed from rt breast Past Anesthesia/Blood Transfusion Reactions: No Reported Reaction Date of Last Stent Placement:: before 2001 Past Psychological History: No Psychological Hx Reported Smoking Status: Former smoker Past Alcohol Use History: None Reported Past Drug Use History: None Reported - Past Family History Mother Family Medical History: Cancer, Coronary Artery Disease (CAD), Renal Disease Additional Family Medical History / Comment(s): uterine ca and cabg Father Family Medical History: Cancer, Congestive Heart Failure (CHF), Prostate Disorder Additional Family Medical History / Comment(s): prostate cancer General Exam - General Exam Comments Initial Comments: GENERAL: Patient is well-developed and well-nourished. Patient is nontoxic and well- hydrated and is in no acute distress. ENT: Neck is soft and supple. No significant lymphadenopathy is noted. Oropharynx is clear. Moist mucous membranes. Neck has full range of motion without eliciting any pain. EYES: The sclera were anicteric and conjunctiva were pink and moist. Extraocular movements were intact and pupils were equal round and reactive to light. Eyelids were unremarkable. PULMONARY: Unlabored respirations. Good breath sounds bilaterally. No audible rales rhonchi or wheezing was noted. CARDIOVASCULAR: There is a regular rate and rhythm without any murmurs gallops or rubs. ABDOMEN: Soft and nontender with normal bowel sounds. SKIN: Skin is clear with no lesions or rashes and otherwise unremarkable. NEUROLOGIC: Patient is alert and oriented x3. Cranial nerves II through XII are grossly intact. Motor and sensory are also intact. Normal speech, volume and content. Symmetrical smile. MUSCULOSKELETAL: Normal extremities with adequate strength and full range of motion. No lower extremity swelling or edema. No calf tenderness. LYMPHATICS: No significant lymphadenopathy is noted PSYCHIATRIC: Normal psychiatric evaluation. Limitations: no limitations Course Vital Signs 08/19/21 13:02 Temperature 98.2 F Pulse Rate 54 L Respiratory 16 Rate Blood Pressure 146/83 O2 Sat by Pulse 100 Oximetry Medical Decision Making - Medical Decision Making EKG shows sinus bradycardia 59 bpm NH interval 290 QRS is 85 QT interval 436 QTC is 4:30 or. Patient's EKG shows some T-wave inversions in precordial leads V5 and V6 as well as leads 1 and aVL. Chest x-ray shows no acute abnormality. Patient remained chest pain-free throughout her ED stay. I spoke with Dr. Guillermo he wanted the patient admitted admitted the patient to the patient heparin I started the patient on heparin. I consult cardiology continued heparin and aspirin and Nitropaste on the floor. - Lab Data Result diagrams: 08/19/21 13:20 08/19/21 13:20 Lab Results 08/19/21 08/19/21 08/19/21 Range/Units 13:20 13:20 13:20 WBC 7.2 (3.8-10.6) k/uL RBC 4.40 (3.80-5.40) m/uL Hgb 14.8 (11.4-16.0) gm/dL Hct 43.9 (34.0-46.0) % MCV 99.6 (80.0-100.0) fL MCH 33.5 (25.0-35.0) pg MCHC 33.6 (31.0-37.0) g/dL RDW 13.5 (11.5-15.5) % Plt Count 253 (150-450) k/uL MPV 7.3 Neutrophils % 66 % Lymphocytes % 25 % Monocytes % 5 % Eosinophils % 1 % Basophils % 0 % Neutrophils # 4.7 (1.3-7.7) k/uL Lymphocytes # 1.8 (1.0-4.8) k/uL Monocytes # 0.4 (0-1.0) k/uL Eosinophils # 0.1 (0-0.7) k/uL Basophils # 0.0 (0-0.2) k/uL PT 10.3 (9.0-12.0) sec INR 0.9 (<1.2) APTT 24.5 (22.0-30.0) sec Sodium 139 (137-145) mmol/L Potassium 4.3 (3.5-5.1) mmol/L Chloride 106 (98-107) mmol/L Carbon Dioxide 26 (22-30) mmol/L Anion Gap 7 mmol/L BUN 20 H (7-17) mg/dL Creatinine 0.73 (0.52-1.04) mg/dL Est GFR (CKD-EPI)AfAm >90 (>60 ml/min/1.73 sqM) Est GFR (CKD-EPI)NonAf 88 (>60 ml/min/1.73 sqM) Glucose 99 (74-99) mg/dL Calcium 9.9 (8.4-10.2) mg/dL Magnesium 1.9 (1.6-2.3) mg/dL Total Bilirubin 0.6 (0.2-1.3) mg/dL AST 26 (14-36) U/L ALT 20 (4-34) U/L Alkaline Phosphatase 36 L (38-126) U/L Troponin I (0.000-0.034) ng/mL Total Protein 7.8 (6.3-8.2) g/dL Albumin 4.5 (3.5-5.0) g/dL 08/19/21 Range/Units 13:20 WBC (3.8-10.6) k/uL RBC (3.80-5.40) m/uL Hgb (11.4-16.0) gm/dL Hct (34.0-46.0) % MCV (80.0-100.0) fL MCH (25.0-35.0) pg MCHC (31.0-37.0) g/dL RDW (11.5-15.5) % Plt Count (150-450) k/uL MPV Neutrophils % % Lymphocytes % % Monocytes % % Eosinophils % % Basophils % % Neutrophils # (1.3-7.7) k/uL Lymphocytes # (1.0-4.8) k/uL Monocytes # (0-1.0) k/uL Eosinophils # (0-0.7) k/uL Basophils # (0-0.2) k/uL PT (9.0-12.0) sec INR (<1.2) APTT (22.0-30.0) sec Sodium (137-145) mmol/L Potassium (3.5-5.1) mmol/L Chloride (98-107) mmol/L Carbon Dioxide (22-30) mmol/L Anion Gap mmol/L BUN (7-17) mg/dL Creatinine (0.52-1.04) mg/dL Est GFR (CKD-EPI)AfAm (>60 ml/min/1.73 sqM) Est GFR (CKD-EPI)NonAf (>60 ml/min/1.73 sqM) Glucose (74-99) mg/dL Calcium (8.4-10.2) mg/dL Magnesium (1.6-2.3) mg/dL Total Bilirubin (0.2-1.3) mg/dL AST (14-36) U/L ALT (4-34) U/L Alkaline Phosphatase (38-126) U/L Troponin I <0.012 (0.000-0.034) ng/mL Total Protein (6.3-8.2) g/dL Albumin (3.5-5.0) g/dL Critical Care Time Critical Care Time: Yes Total Critical Care Time: 35 Disposition Clinical Impression: Unstable angina pectoris Disposition: ADMITTED IP TO THIS HOSP Referrals: Marce Guillermo MD [Primary Care Provider] - 1-2 days Time of Disposition: 14:55
[2021-08-19 13:50] LABS: INR 0.9 (<1.2); Partial Thromboplastin Time 24.5 sec (22.0-30.0); Prothrombin Time 10.3 sec (9.0-12.0)
[2021-08-19 13:55] LABS: ALT 20 U/L (4-34); AST 26 U/L (14-36); African American GFR (CKD) >90 (>60 ml/min/1.73 sqM); Albumin 4.5 g/dL (3.5-5.0); Alkaline Phosphatase 36 U/L (38-126); Anion Gap 7 mmol/L; Blood Urea Nitrogen 20 mg/dL (7-17); Calcium 9.9 mg/dL (8.4-10.2); Carbon Dioxide 26 mmol/L (22-30); Chloride 106 mmol/L (98-107); Glucose 99 mg/dL (74-99); Magnesium 1.9 mg/dL (1.6-2.3); Non-African American GFR(CKD) 88 (>60 ml/min/1.73 sqM); Potassium 4.3 mmol/L (3.5-5.1); Sodium 139 mmol/L (137-145); Total Bilirubin 0.6 mg/dL (0.2-1.3); Total Protein 7.8 g/dL (6.3-8.2)
[2021-08-19 14:04] LABS: Basophils % (A) 0 %; Eosinophils # (A) 0.1 k/uL (0-0.7); Eosinophils % (A) 1 %; HCT 43.9 % (34.0-46.0); HGB 14.8 gm/dL (11.4-16.0); Lymphocytes # (A) 1.8 k/uL (1.0-4.8); Lymphocytes % (A) 25 %; MCH 33.5 pg (25.0-35.0); MCHC 33.6 g/dL (31.0-37.0); MCV 99.6 fL (80.0-100.0); Mean Platelet Volume 7.3; Monocytes # (A) 0.4 k/uL (0-1.0); Monocytes % (A) 5 %; Neutrophils # (A) 4.7 k/uL (1.3-7.7); Neutrophils % (A) 66 %; Platelet Count 253 k/uL (150-450); RDW 13.5 % (11.5-15.5); WBC 7.2 k/uL (3.8-10.6)
--- NOTE | 2021-08-19 14:12 | XR ---
EXAMINATION TYPE: XR chest 2V DATE OF EXAM: 08/19/2021 COMPARISON: 08/30/2017 HISTORY: 65-year-old female with chest pain TECHNIQUE: PA and lateral views FINDINGS: Heart normal size. Median sternotomy wires. Aorta and pulmonary vasculature within normal limits. Mil d interstitial prominence of the chronic appearance. No consolidation or pleural effusion. Mild hyper inflation. IMPRESSION: Correlate for possible underlying COPD. Otherwise, no acute cardiopulmonary process.
[2021-08-19] MEDS ORDERED: NITROGLYCERIN SL TABS 0.4 MG TAB SUBLINGUAL PRN (14:56)
[2021-08-19] MEDS ORDERED: NITROGLYCERIN OINT 1 INCH/GM PACKET TOPICAL SCH (18:00)
[2021-08-19] MEDS: ATORVASTATIN 80 MG TAB PO SCH ×2 (20:41→20:42)
[2021-08-19] MEDS: METOPROLOL TARTRATE 12.5 MG TAB PO SCH (23:10)
[2021-08-20] MEDS ORDERED: ACETAMINOPHEN TAB 325 MG TAB PO PRN (08:18)
[2021-08-20] MEDS ORDERED: CAFFEINE CITRATE 60 MG/3 ML VIAL IV PRN (08:22)
[2021-08-20] MEDS ORDERED: AMINOPHYLLINE 500 MG/20 ML VIAL IV PRN (08:22)
[2021-08-20] MEDS ORDERED: REGADENOSON 0.4 MG/5 ML SYRINGE IV PRN (08:22)
--- NOTE | 2021-08-20 08:29 | P.CRDCN ---
History of Present Illness Consult date: 08/20/21 History of present illness: History of Present Illness: The patient is a 65-year-old female with a history of hypertension, hyperlipidemia, diabetes mellitus, a redo CABG 15 years ago and chronic tobacco use who presents with symptoms of chest discomfort. She had discomfort 2 nights ago, at rest relieved with sublingual nitroglycerin and had another episode the subsequent night requiring 2 nitroglycerin sublingually. Her discomfort was advised and not related to physical activity. She is not quite sure if the symptoms remind her of her anginal pain. She had an MPI in October of last year that showed no evidence of inducible ischemia with a preserved. She denies any dizziness or palpitations she has chronic dyspnea on exertion and continues to smoke about 6 cigarettes a day. She has a known history of peripheral vessels disease status post revascularization in December. She has no PND, orthopnea or peripheral edema. She denies any dizziness, palpitations or syncope. She is pain-free during her evaluation in the emergency room. Her medication at home include metoprolol 12-1/2 mg twice a day, Zestril 10 mg daily, isosorbide 30 mg daily, aspirin once a day, Plavix 75 mg daily, Lipitor 80 mg daily. Review of Systems: Respiratory: She has a history of chronic dyspnea on exertion with chronic tobacco use GI: [She had nausea and vomiting today. No history of peptic ulcer disease. No recent GI bleed.] : [No hematuria or dysuria.] Nervous System: [No seizure. She has a prior history of stroke with total resolution of her symptoms.] Physical Examination: 65-year-old female, alert oriented no apparent distress, pressure 138/66 with a heart rate in the 60s Head: [Normocephalic.] Eyes: [Sclerae nonicteric.] Neck: [Good carotid upstroke, no bruit, no jugular venous distention.] Lungs: Decreased air exchange bilaterally Heart: [Regular rate and rhythm, S1-S2, no S3, no rub. Systolic murmur, ejection type at the base] Abdomen: [Soft nontender, positive bowel sounds no organomegaly.] Extremities: [No edema, decreased distal pulses Labs: Troponin less than 0.012, 0.013. BUN and creatinine 20 and 0.73. Potassium 4.3. Hemoglobin 14.8. EKG shows sinus mechanism rate of 59 left axis deviation T-wave inversion in the lateral precordial leads of unknown duration Impression: 1. Chest discomfort of unclear etiology, cannot exclude angina pectoris in a patient with known history of CAD. Her T-wave inversion raised the question of lateral wall ischemia. No evidence of acute myocardial infarction. 2. Status post redo CABG 3. Chronic tobacco use 4. History of hypertension 5. History of diabetes 6. History of hyperlipidemia 7. Peripheral vascular disease Plan: 1. Continue home medication 2. Obtain an echocardiogram with Doppler 3. Obtain a pharmacological myocardial perfusion imaging 4. Smoking cessation 5. Depending on her results further recommendations will be made. Thank you for this consult we will follow with you. Past Medical History Past Medical History: Coronary Artery Disease (CAD), Chest Pain / Angina, CVA/TIA, Hyperlipidemia, Myocardial Infarction ([place]) Additional Past Medical History / Comment(s): 04-03-15 c/o neuro symptoms. Last Myocardial Infarction Date:: 2006 History of Any Multi-Drug Resistant Organisms: None Reported Past Surgical History: Adenoidectomy, Coronary Bypass/CABG, Heart Catheterization With Stent, Tonsillectomy Additional Past Surgical History / Comment(s): had 2 cabg- first one pt stated had triple done and 2nd one also triple but they had to repair one previous vessel, cyst removed from rt breast Past Anesthesia/Blood Transfusion Reactions: No Reported Reaction Date of Last Stent Placement:: before 2001 Past Psychological History: No Psychological Hx Reported Smoking Status: Former smoker Past Alcohol Use History: None Reported Past Drug Use History: None Reported - Past Family History Mother Family Medical History: Cancer, Coronary Artery Disease (CAD), Renal Disease Additional Family Medical History / Comment(s): uterine ca and cabg Father Family Medical History: Cancer, Congestive Heart Failure (CHF), Prostate Disorder Additional Family Medical History / Comment(s): prostate cancer Medications and Allergies Home Medications Medication Instructions Recorded Confirmed Type Aspirin 81 mg PO DAILY #30 chew 08/31/17 08/19/21 Rx Atorvastatin [Lipitor] 80 mg PO HS 08/19/21 08/19/21 History Clopidogrel [Plavix] 75 mg PO DAILY 08/19/21 08/19/21 History Isosorbide Mononitrate ER [Imdur] 30 mg PO DAILY 08/19/21 08/19/21 History Lisinopril [Zestril] 10 mg PO DAILY 08/19/21 08/19/21 History Metoprolol Tartrate [Lopressor] 12.5 mg PO BID 08/19/21 08/19/21 History Allergies Allergy/AdvReac Type Severity Reaction Status Date / Time No Known Allergies Allergy Verified 08/19/21 14:23 Physical Exam Vitals: Vital Signs Temp Pulse Resp BP Pulse Ox 08/20/21 06:24 61 16 138/66 96 08/19/21 23:07 56 L 18 132/66 98 08/19/21 19:40 98.3 F 66 18 106/46 97 08/19/21 15:53 54 L 16 132/98 97 08/19/21 13:02 98.2 F 54 L 16 146/83 100 Intake and Output 08/19/21 08/20/21 08/20/21 22:59 06:59 14:59 Intake Total 117.573 Balance 117.573 Intake: Intake, IV Titration 117.573 Amount Heparin Sod,Pork in 0.45% 117.573 NaCl 25,000 unit In 0.45 % NaCl 1 250ml.bag @ 12 UNITS/KG/HR 8.818 mls/hr IV .Q24H [facility] Rx#: [id number] Results 08/19/21 13:20 08/19/21 13:20 Cardiac Enzymes 08/19/21 08/19/21 08/19/21 Range/Units 13:20 13:20 15:55 AST 26 (14-36) U/L Troponin I <0.012 0.013 (0.000-0.034) ng/mL 08/19/21 Range/Units 18:29 AST (14-36) U/L Troponin I <0.012 (0.000-0.034) ng/mL Coagulation 08/19/21 08/19/21 08/20/21 Range/Units 13:20 18:29 01:55 PT 10.3 (9.0-12.0) sec APTT 24.5 65.9 H 49.5 H (22.0-30.0) sec 08/20/21 Range/Units 06:06 PT (9.0-12.0) sec APTT 51.3 H (22.0-30.0) sec CBC 08/19/21 Range/Units 13:20 WBC 7.2 (3.8-10.6) k/uL RBC 4.40 (3.80-5.40) m/uL Hgb 14.8 (11.4-16.0) gm/dL Hct 43.9 (34.0-46.0) % Plt Count 253 (150-450) k/uL Comprehensive Metabolic Panel 08/19/21 Range/Units 13:20 Sodium 139 (137-145) mmol/L Potassium 4.3 (3.5-5.1) mmol/L Chloride 106 (98-107) mmol/L Carbon Dioxide 26 (22-30) mmol/L BUN 20 H (7-17) mg/dL Creatinine 0.73 (0.52-1.04) mg/dL Glucose 99 (74-99) mg/dL Calcium 9.9 (8.4-10.2) mg/dL AST 26 (14-36) U/L ALT 20 (4-34) U/L Alkaline Phosphatase 36 L (38-126) U/L Total Protein 7.8 (6.3-8.2) g/dL Albumin 4.5 (3.5-5.0) g/dL Current Medications Generic Name Dose Route Start Last Admin Trade Name Freq PRN Reason Stop Dose Admin Acetaminophen 650 mg 08/20/21 08:18 Acetaminophen Tab 325 Mg Tab PO Q6HR PRN Fever and/ or Pain Aminophylline 100 mg 08/20/21 08:22 Aminophylline 500 Mg/20 Ml Vial IV 08/20/21 12:22 ONCE PRN Patient Response Aspirin 81 mg 08/20/21 09:00 Aspirin 81 Mg PO DAILY [facility] Atorvastatin Calcium 80 mg 08/19/21 21:00 08/19/21 20:42 Atorvastatin 80 Mg Tab PO Not Given HS [facility] Caffeine Citrate 60 mg 08/20/21 08:22 Caffeine Citrate 60 Mg/3 Ml Vial IV 08/20/21 12:22 ONCE PRN Patient Response Clopidogrel Bisulfate 75 mg 08/20/21 09:00 Clopidogrel 75 Mg Tab PO DAILY [facility] Heparin Sodium/Sodium Chloride 250 mls @ 8.818 mls/hr 08/19/21 13:15 08/20/21 02:49 25,000 unit/ Sodium Chloride IV 12 units/kg/hr .Q24H ANGY 8.818 mls/hr Titration Protocol 12 UNITS/KG/HR Isosorbide Mononitrate 30 mg 08/20/21 09:00 Isosorbide Mononitrate Er 30 Mg Tab.Er.24h PO DAILY [facility] Lisinopril 10 mg 08/20/21 09:00 Lisinopril 10 Mg Tab PO DAILY [facility] Metoprolol Tartrate 12.5 mg 08/19/21 21:00 08/19/21 23:10 Metoprolol Tartrate 12.5 Mg Tab PO Not Given BID [facility] Nitroglycerin 0.4 mg 08/19/21 14:56 Nitroglycerin Sl Tabs 0.4 Mg Tab SUBLINGUAL Q5M PRN Chest Pain Regadenoson 0.4 mg 08/20/21 08:22 Regadenoson 0.4 Mg/5 Ml Syringe IV 08/20/21 12:22 ONCE PRN Per Protocol Intake and Output 08/19/21 08/20/21 08/20/21 22:59 06:59 14:59 Intake Total 117.573 Balance 117.573 Intake: Intake, IV Titration 117.573 Amount Heparin Sod,Pork in 0.45% 117.573 NaCl 25,000 unit In 0.45 % NaCl 1 250ml.bag @ 12 UNITS/KG/HR 8.818 mls/hr IV .Q24H [facility] Rx#: [id number] 08/19/21 13:20 08/19/21 13:20
[2021-08-20] MEDS: METOPROLOL TARTRATE 12.5 MG TAB PO SCH (08:37)
[2021-08-20] MEDS ORDERED: CLOPIDOGREL 75 MG TAB PO SCH (09:00)
[2021-08-20] MEDS ORDERED: lisinopriL 10 MG TAB PO SCH (09:00)
[2021-08-20] MEDS ORDERED: ASPIRIN 81 MG PO SCH (09:00)
[2021-08-20] MEDS ORDERED: ISOSORBIDE MONONITRATE ER 30 MG TAB.ER.24H PO SCH (09:00)
[2021-08-20] MEDS ORDERED: ASPIRIN 325 MG TAB PO SCH (09:00)
[2021-08-20 09:48] LABS: Chol/HDL Ratio 3.45 Ratio; LDL Cholesterol,Calculated 108.4 mg/dL (0.0-131.0); VLDL Calculation 13.06 mg/dL (5.00-40.00)
--- NOTE | 2021-08-20 12:24 | ECHOF ---
Referral Reason:cp MEASUREMENTS -------- HEIGHT: 154.9 cm WEIGHT: 74.8 kg BP: RVIDd: 2.5 cm (< 3.3) IVSd: 1.4 cm (0.6 - 1.1) LVIDd: 4.2 cm (3.9 - 5.3) LVPWd: 1.2 cm (0.6 - 1.1) IVSs: 1.9 cm LVIDs: 2.2 cm LVPWs: 1.9 cm LAESV Index (A-L): 19.56 ml/m Ao Diam: 2.6 cm (2.0 - 3.7) AV Cusp: 1.8 cm (1.5 - 2.6) LA Diam: 4.3 cm (2.7 - 3.8) MV EXCURSION: 13.838 mm (> 18.000) MV EF SLOPE: 26 mm/s (70 - 150) EPSS: 0.5 cm MV E Brien: 0.62 m/s MV DecT: 271 ms MV A Brien: 1.01 m/s MV E/A Ratio: 0.62 AR PHT: 865 ms RAP: 5.00 mmHg RVSP: 13.20 mmHg FINDINGS -------- Sinus rhythm. This was a technically adequate study. The left ventricular size is normal. There is moderate concentric left ventricular hypertrophy. O verall left ventricular systolic function is low-normal with, an EF between 50 - 55 %. Basal latera l LV wall motion is hypokinetic. Mid lateral LV wall motion is hypokinetic. The right ventricle is normal in size. Normal LA size by volume 22+/-6 ml/m2. The right atrium was not well visualized. Interatrial and interventricular septum intact. There is mild aortic valve sclerosis. There is mild aortic regurgitation. There is no evidence of aortic stenosis. Mild mitral annular calcification present. There is trace to mild mitral regurgitation. The tricuspid valve appears structurally normal. Mild tricuspid regurgitation present. Right vent ricular systolic pressure is normal at < 35 mmHg. The right ventricular systolic pressure, as measu red by Doppler, is 13.20mmHg. There is no pulmonic regurgitation present. The aortic root size is normal. IVC Not well visulized. There is no pericardial effusion. CONCLUSIONS -------- 1. There is moderate concentric left ventricular hypertrophy. 2. Overall left ventricular systolic function is low-normal with, an EF between 50 - 55 %. 3. Basal lateral LV wall motion is hypokinetic. 4. Mid lateral LV wall motion is hypokinetic. 5. Normal LA size by volume 22+/-6 ml/m2. 6. There is mild aortic regurgitation. 7. There is trace to mild mitral regurgitation. 8. Mild tricuspid regurgitation present. HEALTH EDUCATION DIRECTOR: Arin Marin RDCS
--- NOTE | 2021-08-20 13:55 | P.HPIM ---
History of Present Illness H&P Date: 08/20/21 Chief Complaint: Chest pain HISTORY AND PHYSICAL AND DISCHARGE SUMMARY: HISTORY OF PRESENT ILLNESS This is a 65-year-old female patient with past medical history of hypertension, hyperlipidemia, diabetes mellitus type 2, coronary artery disease status post redo CABG 15 years ago, active tobacco use and dependence. She developed chest discomfort/pain 2 days ago and was relieved with nitroglycerin sublingually, patient has second episode with the same and relieved with nitroglycerin. Patient has been afebrile, heart rate in the 50s, blood pressure 146/83, pulse ox 100% on room air. EKG sinus rhythm with left axis deviation, T-wave inversion in the lateral leads. CBC is unremarkable. BUN 20 creatinine 0.73 and potassium 4.3. Troponins are negative on 3 draws. Coronavirus PCR not detected. Chest x-ray reveals underlying COPD, no acute cardiopulmonary process. Patient denies having any chest pain at this time. She does complain of headache due to lack of caffeine. Patient is nothing by mouth and has been seen by cardiology with plan for stress test today Lexiscan stress test revealed large prior infarct lateral left ventricle wall. Some. Infarct ischemic change along the anterior lateral wall present. Mildly diminished even off of 49%. This was reviewed by cardiology, Dr. velasquez on, and patient was cleared for discharge home. Patient is being discharged in stable condition. REVIEW OF SYSTEMS Constitutional: No fever, no chills, no night sweats. No weight change. No weakness, fatigue or lethargy. No daytime sleepiness. EENT: No headache. No blurred vision or double vision, no loss of vision. No loss of Hearing, no ringing in the ears, no dizziness. No nasal drainage or congestion. No epistaxis. No sore throat. Lungs: No shortness of breath, cough, no sputum production. No wheezing. Cardiovascular: No chest pain, no lower extremity edema. No palpitations. No paroxysmal nocturnal dyspnea. No orthopnea. No lightheadedness or dizziness. No syncopal episodes. Abdominal: No abdominal pain. No nausea, vomiting. No diarrhea. No constipation. No bloody or tarry stools. No loss of appetite. Genitourinary: No dysuria, increased frequency, urgency. No urinary retention. Musculoskeletal: No myalgias. No muscle weakness, no gait dysfunction, no frequent falls. No back pain. No neck pain. Integumentary: No wounds, no lesions. No rash or pruritus. No unusual bruising. No change in hair or nails. Neurologic: No aphasia. No facial droop. No change in mentation. No head injury. No headache. No paralysis. No paresthesia. Psychiatric: No depression. No anxiety. No mood swings. Endocrine: No abnormal blood sugars. No weight change. No excessive sweating or thirst. No cold intolerance. MEDICAL HISTORY Hypertension Hyperlipidemia Diabetes mellitus type 2 Coronary artery disease status post redo CABG SURGICAL HISTORY Adenoidectomy CABG triple-vessel followed by redo Cardiac catheterization with stent placement Tonsillectomy Cyst removed from the right breast SOCIAL HISTORY Patient is actively using tobacco and smokes 1-1/2 packs per day since she was 17 years of age. No alcohol use, marijuana use or illicit drug use. FAMILY HISTORY Father at age 70 from bone cancer and history of heart failure. Mother of a 83 with history of heart failure and ovarian cancer. Patient has 1 brother that is from Hodgkin's lymphoma. 2 brothers with no major medical problems. Patient has one sister with no major medical problems. Patient has one son that he had a pacemaker [place] at age 46 patient has one daughter 34 years of age with no major medical problems. PHYSICAL EXAMINATION Gen: This is a 65-year-old female. She is resting in bed appears to be comfortable and in no acute distress. HEENT: Head is atraumatic, normocephalic. Pupils equal, round. Sclerae is anicteric. NECK: Supple. No JVD. No lymphadenopathy. No thyromegaly. LUNGS: Clear to auscultation. No wheezes or rhonchi. No intercostal retractions. HEART: first heart sound is depressed, second heart sound is normal, 2/6 Systolic ejection murmurat the left sternal border. ABDOMEN: Soft. Bowel sounds are present. No masses. No tenderness. EXTREMITIES: No pedal edema. No calf tenderness. NEUROLOGICAL: Patient is awake, alert and oriented x3. Cranial nerves 2 through 12 are grossly intact. ASSESSMENT AND PLAN 1. Chest pain relieved with nitroglycerin, possible unstable angina. 2. Hypertension. 3. Hyperlipidemia. 4. Diabetes mellitus type 2. 5. Coronary artery disease status post redo CABG 15 years ago. 6. Tobacco use and dependence. No nicotine patch at this time. 7. Headache secondary to caffeine abstinence. Tylenol. Patient placed as observation status. DISCHARGE PLAN Home. DISCHARGE MEDICATIONS Aspirin 81 mg PO DAILY #30 chew 08/31/17 [Rx] Atorvastatin [Lipitor] 80 mg PO HS 08/19/21 [History] Clopidogrel [Plavix] 75 mg PO DAILY 08/19/21 [History] Lisinopril [Zestril] 10 mg PO DAILY 08/19/21 [History] Metoprolol Tartrate [Lopressor] 12.5 mg PO BID 08/19/21 [History] Isosorbide Mononitrate ER [Imdur] 60 mg PO DAILY 30 Days #30 tab 08/20/21 [Rx] Greater than 35 minutes was utilized and coordinating patient's discharge. Impression and plan of care have been directed as dictated by the signing physician. Leslie Salgado nurse practitioner acting as scribe for signing physician. Past Medical History Past Medical History: Coronary Artery Disease (CAD), Chest Pain / Angina, CVA/TIA, Hyperlipidemia, Myocardial Infarction ([place]) Additional Past Medical History / Comment(s): 04-03-15 c/o neuro symptoms. Last Myocardial Infarction Date:: 2006 History of Any Multi-Drug Resistant Organisms: None Reported Past Surgical History: Adenoidectomy, Coronary Bypass/CABG, Heart Catheterization With Stent, Tonsillectomy Additional Past Surgical History / Comment(s): had 2 cabg- first one pt stated had triple done and 2nd one also triple but they had to repair one previous vessel, cyst removed from rt breast Past Anesthesia/Blood Transfusion Reactions: No Reported Reaction Date of Last Stent Placement:: before 2001 Past Psychological History: No Psychological Hx Reported Smoking Status: Former smoker Past Alcohol Use History: None Reported Past Drug Use History: None Reported - Past Family History Mother Family Medical History: Cancer, Coronary Artery Disease (CAD), Renal Disease Additional Family Medical History / Comment(s): uterine ca and cabg Father Family Medical History: Cancer, Congestive Heart Failure (CHF), Prostate Disorder Additional Family Medical History / Comment(s): prostate cancer Brother(s) Family Medical History: Cancer Additional Family Medical History / Comment(s): from Hodgkins Lymphoma in early 30s. Sister(s) Family Medical History: Myocardial Infarction ([place]) Additional Family Medical History / Comment(s): Sister 3 months ago from [place] Medications and Allergies Home Medications Medication Instructions Recorded Confirmed Type Aspirin 81 mg PO DAILY #30 chew 08/31/17 08/19/21 Rx Atorvastatin [Lipitor] 80 mg PO HS 08/19/21 08/19/21 History Clopidogrel [Plavix] 75 mg PO DAILY 08/19/21 08/19/21 History Lisinopril [Zestril] 10 mg PO DAILY 08/19/21 08/19/21 History Metoprolol Tartrate [Lopressor] 12.5 mg PO BID 08/19/21 08/19/21 History Isosorbide Mononitrate ER [Imdur] 60 mg PO DAILY 30 Days #30 tab 08/20/21 Rx Allergies Allergy/AdvReac Type Severity Reaction Status Date / Time No Known Allergies Allergy Verified 08/19/21 14:23 Physical Exam Vitals: Vital Signs Temp Pulse Resp BP Pulse Ox 08/20/21 06:24 61 16 138/66 96 08/19/21 23:07 56 L 18 132/66 98 08/19/21 19:40 98.3 F 66 18 106/46 97 08/19/21 15:53 54 L 16 132/98 97 08/19/21 13:02 98.2 F 54 L 16 146/83 100 Intake and Output 08/19/21 08/20/21 08/20/21 22:59 06:59 14:59 Intake Total 117.573 Balance 117.573 Intake: Intake, IV Titration 117.573 Amount Heparin Sod,Pork in 0.45% 117.573 NaCl 25,000 unit In 0.45 % NaCl 1 250ml.bag @ 12 UNITS/KG/HR 8.818 mls/hr IV .Q24H [facility] Rx#: [id number] Results CBC & Chem 7: 08/19/21 13:20 08/19/21 13:20 Labs: Abnormal Lab Results - Last 24 Hours (Table) 08/19/21 08/19/21 08/20/21 Range/Units 13:20 18:29 01:55 APTT 65.9 H 49.5 H (22.0-30.0) sec BUN 20 H (7-17) mg/dL Alkaline Phosphatase 36 L (38-126) U/L 08/20/21 Range/Units 06:06 APTT 51.3 H (22.0-30.0) sec BUN (7-17) mg/dL Alkaline Phosphatase (38-126) U/L
--- NOTE | 2021-08-20 14:38 | NM ---
EXAMINATION TYPE: NM stress lexiscan cardiolite DATE OF EXAM: 08/20/2021 COMPARISON: NONE HISTORY: Prior infarct, chest pain TECHNIQUE: After the intravenous administration of 9.3 mCi Tc 99m Sestamibi - Cardiolite resting SPE CT images acquired 45 minutes post injection. At peak stress 24.4 mCi Tc 99m Sestamibi - Stress images obtained 30 minutes post injection The patient was stressed with 0.4mg Lexiscan. FINDINGS: There is a large fixed defect along the lateral wall. On the polar maps there appears to be some reversibility in the anterior lateral wall may be some per i-infarct stress-induced ischemic change. No significant wall motion is evident. Ejection fraction is calculated to be 49 % which is mildly low. Normal greater than 50%. Preliminary results were provided to the office at the time of preliminary interpretation. IMPRESSION: 1. Large prior infarct lateral left ventricle wall. 2. Some mick-infarct ischemic change along the anterior lateral wall the present. 3. Mildly diminished ejection fraction of 49%.
[2021-08-20 14:44] VITALS: BP 107/56; PULSE 63; RESP 18; TEMP 98
--- NOTE | 2021-08-20 15:53 | EST ---
EXERCISE STRESS AGE: 65 SEX: F HT: 5'1" WT: 161 lbs PROTOCOL: Lexiscan STAGE: NA DURATION OF EXERCISE: NA HEART RATE REST: 50 BLOOD PRESSURE REST: 128/70 MAXIMUM HEART RATE ACHIEVED: 81 MAXIMUM BLOOD PRESSURE: 142/73 85% MPHR: 133 100% MPHR: 156 METS: NA RESULTS: Baseline rhythm is sinus mechanism, rate of 52, borderline left axis deviation. Poor R wave progression. Baseline blood pressure 128/78 mmHg. Patient received injection of Lexiscan. Electrocardiographic monitoring revealed no evidence of diagnostic ischemic ST deviation. Cardiolite was injected per protocol. CONCLUSION: 1. Nondiagnostic electrocardiographic stress testing. 2. Nuclear images will be reported separately. MMODL / IJN: [id number] /
== END 2021-08-20 15:59 | disposition home or self-care (01) ==
LOC: EC 12:51 → 6NMEDSUR 15:37
PROVIDERS: ADMIT Internal Medicine; ATTEND Internal Medicine
DX: R07.89 Other chest pain (principal); I25.10 Atherosclerotic heart disease of native coronary artery without angina pectoris; I11.9 Hypertensive heart disease without heart failure; E11.51 Type 2 diabetes mellitus with diabetic peripheral angiopathy without gangrene; I08.3 Combined rheumatic disorders of mitral, aortic and tricuspid valves; E78.00 Pure hypercholesterolemia, unspecified; E78.5 Hyperlipidemia, unspecified; F17.210 Nicotine dependence, cigarettes, uncomplicated; R00.1 Bradycardia, unspecified; J44.9 Chronic obstructive pulmonary disease, unspecified; R11.2 Nausea with vomiting, unspecified; R51.9 Headache, unspecified; T43.61 Poisoning by, adverse effect of and underdosing of caffeine; Z20.822 Contact with and (suspected) exposure to COVID-19; Z79.02 Long term (current) use of antithrombotics/antiplatelets; Z79.82 Long term (current) use of aspirin; Z79.899 Other long term (current) drug therapy; Z86.73 Personal history of transient ischemic attack (TIA), and cerebral infarction without residual deficits; I25.2 Old myocardial infarction; Z95.1 Presence of aortocoronary bypass graft; Z95.5 Presence of coronary angioplasty implant and graft; Z98.890 Other specified postprocedural states; Z71.6 Tobacco abuse counseling; Z82.49 Family history of ischemic heart disease and other diseases of the circulatory system; Z80.49 Family history of malignant neoplasm of other genital organs; Z84.1 Family history of disorders of kidney and ureter; Z80.42 Family history of malignant neoplasm of prostate; Z80.7 Family history of other malignant neoplasms of lymphoid, hematopoietic and related tissues; Z80.8 Family history of malignant neoplasm of other organs or systems
CPT/HCPCS: 96376; 96365; 96366 ×2; 99291; 36415; 93005; 93017; 93306; 80061; 80053; 83735; 84484; 85025; 85610; 85730 ×2; 87635; 71046; 78452; G0378 ×2; A9500; J1644 ×2; J2785

== ENCOUNTER 2021-09-02 07:53 | Day surgery (SDC) | payer BC ==
[2021-09-01 08:44] VITALS: BMI 30.2
[~2021-09-02 07:53] MED LIST: ALPRAZolam 0.25 MG TAB PO PRN; ALPRAZolam 0.5 MG TAB PO PRN; ASPIRIN 325 MG TAB PO STA; ATORVASTATIN 80 MG TAB PO STA; HEPARIN SODIUM,PORCINE 10,000 UNIT in SODIUM CHLORIDE 0.9% 1,000 ML IRRIGATION PRN; HEPARIN SODIUM,PORCINE 2,500 UNIT in SODIUM CHLORIDE 0.9% 250 ML IRRIGATION PRN; NITROGLYCERIN SL TABS 0.4 MG TAB SUBLINGUAL PRN; SODIUM CHLORIDE 0.9% 1,000 ML in EMPTY BAG 1 BAG IV SCH
[2021-09-02] MEDS ORDERED: ASPIRIN 81 MG ONE (08:16)
[2021-09-02 08:26] VITALS: RESP 18; TEMP 98
[2021-09-02] MEDS ORDERED: LIDOCAINE 1% INJ 10MG/ML (20 ML MDV) ONE ×2 (08:48→09:37)
[2021-09-02] MEDS ORDERED: MIDAZOLAM 2 MG/2 ML VIAL IV ONE (09:24)
[2021-09-02] MEDS ORDERED: LIDOCAINE 1% INJ 10MG/ML (20 ML MDV) SQ ONE (09:26)
[2021-09-02] MEDS ORDERED: fentaNYL (PF) 50 MCG/ML 2 ML AMP ONE (09:33)
[2021-09-02] MEDS: fentaNYL (PF) 50 MCG/ML 2 ML AMP IV ONE ×2 (09:35→09:39)
[2021-09-02] MEDS ORDERED: IOPAMIDOL-370 100ML BTL INJ ONE ×2 (09:57→10:19)
[2021-09-02] MEDS ORDERED: FUROSEMIDE 10 MG/ML 4 ML VIAL ONE (10:15)
[2021-09-02] MEDS ORDERED: FUROSEMIDE 10 MG/ML 4 ML VIAL IV ONE (10:18)
[2021-09-02] MEDS ORDERED: IOPAMIDOL-370 50ML BTL INJ ONE (10:19)
[2021-09-02] MEDS ORDERED: SODIUM CHLORIDE 0.9% 1,000 ML IV SCH (10:45)
--- NOTE | 2021-09-02 13:58 | CC ---
CARDIAC CATHETERIZATION REPORT DATE OF SERVICE: 09/02/2021 PROCEDURE: Left heart catheterization, coronary angiography, aortography, selective injection of left internal mammary artery graft and vein grafts. PERFORMED BY: Dr. Real Kohli. Moderate conscious sedation time was 58 minutes. Patient was administered Versed. Oxygen saturation, hemodynamics and EKG were monitored closely. CLINICAL INFORMATION: Mrs. Mona Dee is a 65-year-old lady with a history of smoking, COPD, peripheral arterial disease, CAD with two previous bypass surgeries. The last one was probably in 2007. Patient is not a good historian and after multiple attempts, I could not obtain any records from [facility]. She has been having symptoms of angina, was optimized on medical therapy, had a positive stress test with a lateral wall reversible defect and old IN in the same area. She was advised cardiac catheterization after due discussion regarding risks, benefits and options. She was advised procedure from the left femoral approach. She had a peripheral intervention from the right femoral approach. PROCEDURE NOTE: Under strict aseptic precautions and local anesthesia, access was obtained into the left common femoral artery under fluoroscopic guidance and micropuncture needle technique. A 6-Vietnamese introducer was placed. I used a JL4 catheter for selective coronary angiography of the left system and a Renate catheter to do selective injection of both the right and left internal mammary arteries and then the pauma RCA also. AR2 catheter was used and selective injection was performed of at least two bypass grafts which were seen as stumps. I then used a right bypass guide catheter also without success. I then used a pigtail catheter to check LV pressures and performed an aortogram in PUERTO RICAN projection. Patient tolerated procedure well. The sheath was taken out and manual compression used to secure hemostasis and she was sent to the room in a stable condition. Results were discussed with the patient and her . Advised to quit smoking, pursue medical therapy. Prognosis remains guarded and she has all vein grafts occluded. Only the GANDARA and circumflex, which is coming from a 50% stenosed left main, is her only artery. There is no critical stenosis in the circumflex system. CARDIAC CATHETERIZATION FINDINGS: The left ventricular end-diastolic pressure was 21 mmHg. There was no gradient across the aortic valve. CORONARY ANGIOGRAPHY FINDINGS: LEFT MAIN CORONARY ARTERY: This is a short vessel, has about a 40% to 50% stenosis, then gives off a circumflex and LAD. The left main itself has about a 40% to 50% narrowing noted. LEFT ANTERIOR DESCENDING CORONARY ARTERY: This vessel is totally occluded. No antegrade flow noted. A small diagonal branch comes off. LEFT POSTERIOR CIRCUMFLEX CORONARY ARTERY: This vessel has no significant disease in the proximal portion. In the mid portion there is about a 40% narrowing, but no critical stenosis is noted and the flow is brisk. It continues as a PDA branch distally and appears to be a dominant circumflex, but all the OM branches are totally occluded. Mid portion of this vessel as it curves distally has about a 40% narrowing with mild calcification. Left main itself has a 40% to 50% narrowing also. RIGHT CORONARY ARTERY: This artery is totally blocked without much antegrade flow, probably a nondominant vessel. LEFT INTERNAL MAMMARY ARTERY GRAFT TO LAD: This graft is widely patent in its origin, course and insertion site, and the opacified LAD has minor diffuse irregularities but no significant stenosis. It gives off a lot of septal branches. SAPHENOUS VEIN GRAFT TO PROBABLY CIRCUMFLEX: This is totally occluded, seen as a stump. SAPHENOUS VEIN GRAFT TO PROBABLY A RAMUS: This graft is also totally occluded, seen as a stump. I could not cannulate a saphenous vein graft to the right coronary artery. There are at least two vein grafts that are totally occluded. RIGHT INTERNAL MAMMARY ARTERY INJECTION: This was performed to rule out if there was any right internal mammary artery graft to the coronary system, but this JUDY injection did not yield any connection to any coronary vessels. LEFT VENTRICULOGRAM: This was performed in a shallow PUERTO RICAN projection. This revealed a normal-sized aortic root, trivial aortic insufficiency, but no evidence of any other grafts that were coming off from the aorta. FINAL IMPRESSION: This patient has significant CAD with a 40% to 50% left main and a mid circumflex lesion of 40% that actually continues as a PDA. RCA and LAD are totally occluded. Two vein grafts are occluded, probably to the circumflex system. Right internal mammary artery does not connect any coronary vessel. The left internal mammary artery graft connects to LAD, which is widely patent with good flow; mild diffuse disease in LAD. Elevated filling pressures. Aortogram revealed no evidence of any significant aortic insufficiency, normal-sized aortic root, and no evidence of any vein grafts. RECOMMENDATIONS: Continued medical therapy. Smoking cessation was advised. Patient will be watched carefully and will be discharged later this evening. I will see her in one week. Details were discussed with the patient and her . MMODL / IJN: [id number] /
[2021-09-02 16:52] VITALS: BP 133/69; PULSE 54
== END 2021-09-02 17:25 | disposition home or self-care (01) ==
LOC: CATHCVL 07:53
PROVIDERS: ATTEND Internal Medicine Interventional Cardiology
DX: I25.110 Atherosclerotic heart disease of native coronary artery with unstable angina pectoris (principal); I25.710 Atherosclerosis of autologous vein coronary artery bypass graft(s) with unstable angina pectoris; I25.84 Coronary atherosclerosis due to calcified coronary lesion; I25.82 Chronic total occlusion of coronary artery; R94.39 Abnormal result of other cardiovascular function study; Z20.822 Contact with and (suspected) exposure to COVID-19; I10 Essential (primary) hypertension; E78.00 Pure hypercholesterolemia, unspecified; F17.210 Nicotine dependence, cigarettes, uncomplicated; E11.9 Type 2 diabetes mellitus without complications; E78.5 Hyperlipidemia, unspecified; Z82.49 Family history of ischemic heart disease and other diseases of the circulatory system; Z79.02 Long term (current) use of antithrombotics/antiplatelets; Z79.82 Long term (current) use of aspirin; Z79.899 Other long term (current) drug therapy
CPT/HCPCS: 93459; 87635; C1894; C1769 ×2; J2250; J1940; J2001; J3010; Q9967 ×2